=== PATIENT | female | born 1955 | race Caucasian/White ===

== ENCOUNTER → 2017-05-14 08:07 | Outpatient (CLI) | payer OTHER, SELFPAY ==
--- NOTE | 2017-05-14 08:20 | RAD_ITS ---
PROCEDURE: Fluoroscopic guided Hip Injection DATE: May 14, 2017. INDICATION: Female, 61 years old. Chronic right hip pain. PHYSICIAN: Eric Holt M.D. MEDICATIONS: 6 mg of betamethasone and 3 cc of 1% lidocaine. 2% Lidocaine administered subcutaneously for local anesthesia. ACCESS SITE: Right hip. NEEDLE: 22-gauge spinal needle. FLUOROSCOPY TIME (if supplied): (16 seconds) minutes/seconds FINDINGS: The risks, benefits, and alternatives to the procedure were explained to the patient. The specific risks of bleeding, infection, and neurovascular injury were detailed and accepted. Witnessed informed consent was obtained. A 22-gauge spinal needle was positioned under radiographic fluoroscopic localization. Approximately 2 cc of Isovue-300 instilled for localization purposes. Medication was then injected. The patient tolerated the procedure well without any immediate complications. The patient was placed supine with head elevated and returned to the floor in stable condition. RAD/Inj/Asp Vahe Jt Should/Hip/Knee IMPRESSION: 1. Successful fluoroscopic guided hip injection. Electronically Signed: Eric Holt MD at 9:49 EST Tel [phone], Service support ,
== END ==
PROVIDERS: Family Provider Family Medicine; PCP Family Medicine; Visit Provider Specialist
DX: M16.11 Unilateral primary osteoarthritis, right hip (principal)
CPT/HCPCS: 20610; 77002; Q9967; J0702

== ENCOUNTER → 2018-05-20 15:26 | Outpatient (CLI) | payer OTHER, SELFPAY ==
--- NOTE | 2018-05-20 15:47 | EKG12_ITS ---
Test Reason : PREOP Blood Pressure : / mmHG Vent. Rate : 084 BPM Atrial Rate : 084 BPM P-R Int : 162 ms QRS Dur : 076 ms QT Int : 354 ms P-R-T Axes : 054 033 048 degrees QTc Int : 418 ms Normal sinus rhythm Normal ECG Confirmed by SHIRA BLEDSOE MD ([id number]), script editor GISELLE ZENG ([id number] on 05/22/2018 1:51:36 PM Referred By: Etienne Connolly Confirmed By:SHIRA BLEDSOE MD
[2018-05-20 17:10] LABS: Absolute Lymphocyte Count 0.87 X10^3/ul (0.83-4.51); Absolute Neutrophil Count 4.6 X10^3/uL (2.0-7.7); Basophil# 0.02 X10^3/uL; Basophil% 0.3 % (0-1); Eosinophil# 0.09 X10^3/uL; Eosinophils% 1.5 % (0-5); Hematocrit 38.4 % (37-47); Hemoglobin 12.2 g/dl (12.0-15.0); Lymphocyte # 0.87 X10^3/ul (4.0); Lymphocyte % 14.2 % (19-41); Mean Corp Hgb Conc 31.8 g/gl (32-36); Mean Corpuscular Hgb 29.6 pg (27.0-32.0); Mean Corpuscular Volume 93.2 fL (81-99); Mean Platelet Vol. 11.3 fl (6.2-12.0); Monocyte# 0.54 X10^3/uL; Monocyte% 8.8 % (0-10); Neutrophil % 74.9 % (47-70); POSITIVE COUNT NO; POSITIVE DIFFERENTIAL NO; POSITIVE MORPHOLOGY NO; Platelet Count 299 K/mm3 (150-450); RBC Distribution Width CV 14.2 % (11.6-14.6); RBC Distribution Width SD 46.8 fl (35.1-43.9); Red Blood Count 4.12 M/mm3 (4.2-5.4); White Blood Count 6.1 K/mm3 (4.4-11.0)
[2018-05-20 17:27] LABS: Hemoglobin A1c 6.2 % (4.2-6.3)
[2018-05-20 17:35] LABS: Anion Gap 12 (5-15); BUN 18 mg/dL (7-18); Calcium,Total 9.4 mg/dL (8.5-10.1); Chloride 106 mmol/L (98-107); Creatinine, Serum 1.06 mg/dL (0.55-1.02); EST Glomerular Filtration Rate 56 mL/min (>60); Est Glom Filt Rate - Afr Amer 68 mL/min (>60); Glucose 81 mg/dL (74-106); Potassium 4.2 mmol/L (3.5-5.1); Sodium Level 142 mmol/L (136-145)
== END ==
PROVIDERS: Family Provider Family Medicine; PCP Family Medicine; Referring Provider Physician Assistant Surgical; Visit Provider Physician Assistant Surgical
DX: Z01.810 Encounter for preprocedural cardiovascular examination (principal); Z01.818 Encounter for other preprocedural examination; E11.9 Type 2 diabetes mellitus without complications
CPT/HCPCS: 36415; 80048; 83036; 85025; 93005

== ENCOUNTER → 2018-05-31 06:38 | Outpatient (CLI) | payer OTHER, SELFPAY ==
--- NOTE | 2018-05-31 06:39 | ECHOD_ITS ---
Reason For Study: Pre-op surgery clearance Procedure This was a 2D Doppler, Color Flow transthoracic echocardiogram. Exam performed in department. Left Ventricle Normal LV size. The estimated ejection fraction is 53 %. Left ventricular systolic function is lower limits of normal. The global longitudinal strain = -16.2 borderline% (abnormal). Right Ventricle Normal RV size. Normal systolic function. Atria The left atrium is moderately enlarged. Normal right atrium. Hypermobile atrial septum. Patent foramen ovale. Saline contrast study demonstrates moderate right to left interatrial shunt. Mitral Valve Mild diffuse mitral valve thickening. Mild (1+) eccentric mitral valve insufficiency. Tricuspid Valve Normal tricuspid valve. Mild (1+) tricuspid valve insufficiency. Pulmonary artery systolic pressure is 29 mmHg. Aortic Valve Trisinus/trileaflet aortic valve. Pulmonic Valve Normal pulmonic valve. Great Vessels Normal aortic root. The pulmonary artery is normal size. Normal inferior vena cava. Pericardium/Pleural No pericardial effusion. Medication Performed a rapid injection of agitated mix of 9 cc saline and 1cc air to assess for atrial septal defect. MMode/2D Measurements & Calculations LVIDd: 4.6 cm IVSd: 0.89 cm Ao root diam: 3.2 cm LVIDs: 3.0 cm LVPWd: 0.99 cm RVDd: 3.1 cm FS: 33.9 % LAV(MOD-bp): 77.8 ml EDV(MOD-sp4): 104.5 ml EDV(MOD-sp2): 88.5 ml LAV(MOD-bp) Indexed: 43.0 ml/m2 ESV(MOD-sp4): 51.8 ml EF(MOD-sp2): 48.4 % LAV(MOD-sp2): 64.0 ml EF(MOD-sp4): 50.4 % LAV(MOD-sp4): 85.6 ml SV(MOD-sp4): 52.7 ml SV(MOD-sp2): 42.8 ml LA A4 area: 25.1 cm2 LA dimension(2D): 3.4 cm RA A4 area: 14.0 cm2 Doppler Measurements & Calculations MV E max justin: 63.9 cm/sec Lat Peak E' Justin: 7.8 cm/sec Med Peak E' Justin: 8.3 cm/sec MV A max justin: 83.3 cm/sec E/E' lat: 8.2 E/E' med: 7.7 MV E/A: 0.77 Ao V2 max: 144.8 cm/sec LV V1 max: 106.0 cm/sec PA V2 max: 100.0 cm/sec Ao max P.4 mmHg LV V1 max P.5 mmHg TR max justin: 249.3 cm/sec TR max P.9 mmHg Interpretation Summary Hypermobile atrial septum. Normal LV size. The estimated ejection fraction is 53 %. Left ventricular systolic function is lower limits of normal. The global longitudinal strain = -16.2 borderline% (abnormal). The left atrium is moderately enlarged. Patent foramen ovale. Mild (1+) eccentric mitral valve insufficiency. Pulmonary artery systolic pressure is 29 mmHg. Ordering Physician: Josh Abel Referring Physician: David Nation MD Performed By: Trinity Calvin RDCS
--- NOTE | 2018-05-31 09:21 | STRESSREP_ITS ---
Stress Test Report Pharmacologic myocardial perfusion stress test. 62-year-old lady with a history of chest pain preoperative evaluation. Medications: Lisinopril, metoprolol, meloxicam, pravastatin. Stress protocol: Resting EKG demonstrates sinus bradycardia with a rate of 53 bpm normal intervals are noted resting blood pressure 128/70 minute test of mercury. 0.4 mg of regadenoson was infused per usual protocol followed by rapid intravenous saline flush injection. The maximum heart rate attained was 106 bpm which was 67% maximum predicted heart rate the maximum workload was 1 metabolic equivalent. At rest there were no ST or T wave changes noted suggest abnormal flow reserve at peak infusion no ST or T wave changes were noted suggest ischemia. No clinical angina was noted. The resting blood pressure 128/70 with a peak blood pressure 154/80 mmHg. Myocardial perfusion protocol. 10.0 mCi of technetium 99m sestamibi was injected at rest. 0.4 mg of regadenoson was infused per usual protocol. At peak infusion 30.0 mCi of technetium 99m sestamibi was injected stress images were obtained stress and rest images were reconstructed and compared in the short axis vertical and horizontal long axis. Gated images were also obtained per Perfusion SPECT analysis: Review of the stress images demonstrate normal uptake of tracer noted in all a reas of the myocardium. There are no areas of reversibility to suggest ischemia no previous infarct is noted. Gated SPECT analysis: The gated ejection fraction is noted to be 62%. Conclusion: Normal pharmacologic myocardial perfusion stress test. Preserved ejection fraction.
== END ==
PROVIDERS: Family Provider Family Medicine; PCP Family Medicine; Referring Provider Internal Medicine Cardiovascular Disease; Visit Provider Internal Medicine Cardiovascular Disease
DX: Z01.810 Encounter for preprocedural cardiovascular examination (principal); I10 Essential (primary) hypertension
CPT/HCPCS: 78452; 93017; 93306; A9500; A4216; J2785

== ENCOUNTER → 2018-08-28 | Outpatient (CLI) | payer OTHER, SELFPAY ==
[2018-07-08 14:06] VITALS: BMI 23.6
[2018-08-28 09:46] LABS: Absolute Lymphocyte Count 0.92 X10^3/ul (0.83-4.51); Absolute Neutrophil Count 4.3 X10^3/uL (2.0-7.7); Basophil# 0.04 X10^3/uL; Basophil% 0.7 % (0-1); Eosinophil# 0.16 X10^3/uL; Eosinophils% 2.6 % (0-5); Hematocrit 39.4 % (37-47); Hemoglobin 12.4 g/dl (12.0-15.0); Lymphocyte # 0.92 X10^3/ul (4.0); Lymphocyte % 15.2 % (19-41); Mean Corp Hgb Conc 31.5 g/gl (32-36); Mean Corpuscular Hgb 28.1 pg (27.0-32.0); Mean Corpuscular Volume 89.1 fL (81-99); Mean Platelet Vol. 10.7 fl (6.2-12.0); Monocyte# 0.59 X10^3/uL; Monocyte% 9.8 % (0-10); Neutrophil # 4.31 X10^3/uL (2.7-7.7); Neutrophil % 71.4 % (47-70); Platelet Count 330 K/mm3 (150-450); RBC Distribution Width CV 15.9 % (11.6-14.6); RBC Distribution Width SD 51.8 fl (35.1-43.9); Red Blood Count 4.42 M/mm3 (4.2-5.4)
[2018-08-28 09:47] LABS: POSITIVE COUNT NO; POSITIVE DIFFERENTIAL NO; POSITIVE MORPHOLOGY NO
[2018-08-28 09:52] LABS: Erythrocyte Sedimentation Rate 41 mm/hr (0-30)
[2018-08-28 10:07] LABS: CRP < 2.90 mg/L (0.0-3.0)
== END | disposition home or self-care (01) ==
PROVIDERS: Family Provider Family Medicine; PCP Family Medicine; Referring Provider Physician Assistant Surgical; Visit Provider Physician Assistant Surgical
DX: Z96.641 Presence of right artificial hip joint (principal); Z47.1 Aftercare following joint replacement surgery
CPT/HCPCS: 36415; 85025; 85652; 86140

== ENCOUNTER 2018-09-13 08:00 | Outpatient (RCR) | payer OTHER, SELFPAY ==
[2018-07-08 14:06] VITALS: BMI 23.6
[2018-09-06 09:01] VITALS: BP 149/79; PULSE 56; RESP 16; TEMP 37; BMI 22.8
--- NOTE | 2018-09-06 12:08 | PCM.WC.HP ---
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 History of Wound: 62-year-old white female that had a right hip replacement done in June 07. Fell up to a flap nonhealing surgical wound. Patient scab then opened and now has a large open surgical wound with fat exposed since May. She has been doing wet-to-dry dressing since then documentation to follow from the surgery center. 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) Patent foramen ovale (Chronic) Hyperlipidemia (Chronic) Nicotine dependence (Chronic) Type 2 diabetes mellitus (Chronic) Essential (primary) hypertension (Chronic) Allergies/Adverse Reactions: Allergies No Known Allergies Allergy (Verified 07/08/18 14:10) Home Medications: Ambulatory Orders Medication Instructions Recorded lisinopril 20 mg tablet 20 mg PO BID 90 Days #180 tab 05/29/18 meloxicam 15 mg tablet 15 mg PO DAILY 90 Days #90 tab 05/29/18 metformin 500 mg tablet 500 mg PO DAILY 90 Days #90 tab 05/29/18 pravastatin 20 mg tablet 20 mg PO QHS 90 Days #90 tab 05/29/18 sertraline 100 mg tablet 100 mg PO Q24H 90 Days #90 tab 05/29/18 triamterene 37.5 1 tab PO QAM 90 Days #90 tab 05/29/18 mg-hydrochlorothiazide 25 mg tablet aspirin 81 mg tablet,delayed 81 mg PO DAILY 07/09/18 release metoprolol succinate ER 25 mg 25 mg PO DAILY #90 tab 07/09/18 tablet,extended release 24 hr Lives: Spouse/ Significant Other Smoking Status: Current every day smoker Tobacco Use: Cigarettes Alcohol: None Drugs: None Review of Systems Constitutional: Denies: Chills, Fever Eyes: Denies: Blurred vision, Drainage, Pain HEENT: Denies: Difficulty Hearing, Difficulty Swallowing, Sore Throat, Visual Changes Cardiovascular: Denies: Chest Pain, Palpitations, Syncope Respiratory: Denies: Cough, Shortness of Breath Gastrointestinal: Denies: Abdominal Pain, Nausea, Vomiting Genitourinary: Denies: Dysuria, Frequency Musculoskeletal: Denies: Joint Pain, Muscle pain Skin: Reports: - - Open surgical wound right hip upper thigh area. Denies: Jaundice, Rash Neurological: Denies: Balance problems, Change in Speech, Difficulty swallowing, Focal weakness Psychiatric: Denies: Anxiety, Depression Endocrine: Denies: Change in Body Habitus Hematologic/ Lymphatic: Denies: Adenopathy - Physical Exam Vital Signs Temp Pulse Resp BP 98.6 F 56 L 16 149/79 H 09/06/18 09:01 09/06/18 09:01 09/06/18 09:01 09/06/18 09:01 General: Oriented x3, Cooperative, Well developed HEENT: Atraumatic, PERRLA Oral: Moist Mucosa Neck: Supple, No JVD Lungs: Clear to auscultation, Normal air movement Cardiovascular: Regular rate, Regular Rhythm Abdomen: Bowel Sounds Present, Soft, Non Tender, No Hepato-splenomegaly Extremities: No clubbing, No edema Skin: - - Open surgical wound right upper thigh Wound Measurements and Assessment WC - Nurse 1 - General Ulcer Measurement Start: 09/06/18 09:00 Freq: Status: Active Protocol: Activity Type Activity Date Activity User E-Sign Co-Sign Detail Recorded Client Recorded Date Recorded By Document 09/06/18 09:01 [id number] 09/06/18 09:05 Document 09/06/18 09:16 [id number] 09/06/18 09:17 09/06/18 09/06/18 09:01 09:16 Wound Center Nurse 1 [Ulcer Assessment] #1 right hip -Combined with other wound No -Current Size (cm) - Length 3.6 -Current Size (cm) - Width 4.9 -Current Size (cm) - Depth 0.5 -Total Square Cm 17.64 -Date of Last Picture (Recall this 09/06/18 field) -Photo Taken Yes -Epithelialization None Present -Tunneling No -Undermining/Tunneling Yes -Undermining/Tunneling Starts (O' 4 clock) -Undermining/Tunneling Ends (O'clock) 6 -Maximum Distance (cm) 0.5 -Circular Undermining No -Exudate Amt Small -Exudate Type Serosanguineous -Wound Margin Thickened & Rolled Under -Granulation Amt Medium (34-66%) -Granulation Quality Red -Slough/Fibrin Yes -Necrosis Amt Small (1-33%) -Necrotic Tissue Type Adherent Slough -Structure Exposed None/Limited to Skin Breakdown -Texture (Zoila-wound Skin Appearance) Assessed -Moisture (Zoila-wound Skin Appearance Assessed ) -Color (Zoila-wound Skin Appearance) Assessed -Temperature (Zoila-wound Skin No Abnormality Appearance) (Pt Warm) -Tenderness on Palpation (Zoila-wound No Skin Appearance) -Ulcer Cleansing Rinsed/ Irrigated with Saline -Foul Odor after Cleansing No -Anesthetic Used 5% Lidocaine Gel #1 Right hip: post-op -Combined with other wound No -Current Size (cm) - Length 3.6 -Current Size (cm) - Width 4.9 -Current Size (cm) - Depth 0.5 -Total Square Cm 17.64 -Date of Last Picture (Recall this 09/06/18 field) -Photo Taken Yes -Epithelialization None Present -Tunneling No -Undermining/Tunneling Yes -Undermining/Tunneling Starts (O' 4 clock) -Undermining/Tunneling Ends (O'clock) 6 -Maximum Distance (cm) 0.5 -Circular Undermining No -Exudate Amt Small -Exudate Type Serosanguineous -Wound Margin Thickened & Rolled Under -Granulation Amt Medium (34-66%) -Granulation Quality Red -Slough/Fibrin Yes -Necrosis Amt Small (1-33%) -Necrotic Tissue Type Adherent Slough -Structure Exposed None/Limited to Skin Breakdown -Texture (Zoila-wound Skin Appearance) Assessed -Moisture (Zoila-wound Skin Appearance Assessed ) -Color (Zoila-wound Skin Appearance) No Abnormality Assessed -Temperature (Zoila-wound Skin No Abnormality Appearance) (Pt Warm) -Tenderness on Palpation (Zoila-wound No Skin Appearance) -Ulcer Cleansing Rinsed/ Irrigated with Saline -Foul Odor after Cleansing No -Anesthetic Used 5% Lidocaine Gel [Edema Assessment] -Lower Limb Edema Present NA - Nurse 2 - General Ulcer CM Notes Start: 09/06/18 09:00 Freq: Status: Active Protocol: Activity Type Activity Date Activity User E-Sign Co-Sign Detail Recorded Client Recorded Date Recorded By Document 09/06/18 09:05 MW [id number] 09/06/18 09:10 MW 09/06/18 09:05 Wound Center Nurse 2 [Procedure/Treatment] -Time 09:09 -Correct Patient Yes -Correct Side, Site, Position Yes -Correct Procedure Yes -Procedure Performed Yes -Type of Procedure Debridement -Clinical Debridement Subcutaneous -Post Debridement Size (cm) - Length 3.2 -Post Debridement Size (cm) - Width 4.2 -Post Debridement Size (cm) - Depth 0.7 -Total Square Cm 13.44 -Wound/Ulcer Outcome Not Healed -Ulcer Cleansing Rinsed/ Irrigated with Saline -Foul Odor after Cleansing No -Bioengineered Tissue No -Bleeding Controlled with Pressure -Offloading No -Treatment Response Procedure Tolerated Well [See Physician Procedure note for Specifics] Pain Scale: 0-10 Numeric [Pain] -Is Patient Pain Free? Yes Musculoskeletal: No Tenderness to Palpation of Joints or Extremities Lymphatic: No Cervical, Supraclavicular, or Inguinal Adenopathy Neurological: Cranial nerves II-XII grossly intact, Neuro grossly intact Psych/Mental Status: Normal Affect, Appropriate, Alert and oriented to time, place, person, mood and affect Debridement Note Post-Debridement Measurements/Treatment - Nurse 2 - General Ulcer CM Notes Start: 09/06/18 09:00 Freq: Status: Active Protocol: Activity Type Activity Date Activity User E-Sign Co-Sign Detail Recorded Client Recorded Date Recorded By Document 09/06/18 09:05 MW [id number] 09/06/18 09:10 MW 05/24/19 09:05 Wound Center Nurse 2 #1 right hip -Time 09:09 -Correct Patient Yes -Correct Side, Site, Position Yes -Correct Procedure Yes -Procedure Performed Yes -Type of Procedure Debridement -Clinical Debridement Subcutaneous -Post Debridement Size (cm) - Length 3.2 -Post Debridement Size (cm) - Width 4.2 -Post Debridement Size (cm) - Depth 0.7 -Total Square Cm 13.44 -Wound/Ulcer Outcome Not Healed -Ulcer Cleansing Rinsed/ Irrigated with Saline -Foul Odor after Cleansing No -Bioengineered Tissue No -Bleeding Controlled with Pressure -Offloading No -Treatment Response Procedure Tolerated Well Pain Scale: 0-10 Numeric Is Patient Pain Free? Yes Wound debrided: Upper thigh surgical wound chronic Type of Debridement: Excisional debridement Anesthesia Used: 5% Lidocaine Gel Depth: Down to and including healthy tissue, in the subcutaneous layer Percentage of wound debrided: 100 Instrument Used: 7mm curette Tissue Removed: Slough and some fibrin Severity: Limited To Skin Breakdown Amount of bleeding with debridement: Mild Bleeding Controlled with: Compression and gauze Patient tolerated procedure well Assessment/Plan Active Problems (Last Updated 07/08/18 @ 14:12 by Rachel Herrera) Non-healing non-surgical wound (Acute) Open wound of lower extremity (Chronic) Nonhealing nonsurgical wound with fat layer exposed (Acute) Non-healing surgical wound (Chronic) 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 Chronic open surgical wound from right hip replacement Plan: Wash the area with Dial soap. Apply Promogran to the wound bed. Cover with Adaptic and gauze and tape. Follow-up in 1 week.
[2018-09-13 08:09] VITALS: BP 125/79; PULSE 73; RESP 16; TEMP 36.8; BMI 22.8
--- NOTE | 2018-09-13 08:26 | PCM.WC.PN ---
(1) Essential (primary) hypertension Status: Chronic Current Visit: Yes Code(s): I10 - Essential (primary) hypertension (2) Type 2 diabetes mellitus Status: Chronic Current Visit: Yes Code(s): E11.9 - Type 2 diabetes mellitus without complications (3) Open wound of lower extremity Status: Chronic Current Visit: Yes Code(s): S81.809A - Unspecified open wound, unspecified lower leg, initial encounter (4) Non-healing surgical wound Status: Chronic Current Visit: Yes Code(s): T81.89XA - Other complications of procedures, not elsewhere classified, initial encounter (5) Non-pressure ulcer of right lower extremity with fat layer exposed Status: Chronic Current Visit: Yes Code(s): L97.912 - Non-pressure chronic ulcer of unspecified part of right lower leg with fat layer exposed Type of Wound Chief Complaint: Follow-up on right surgical open wound. History of Wound: 62-year-old white female that had a right hip replacement done in June 07. Fell up to a flap nonhealing surgical wound. Patient scab then opened and now has a large open surgical wound with fat exposed since May. She has been doing wet-to-dry dressing since then documentation to follow from the surgery center. Since patient has been doing a wet-to-dry since May we have applied for an epi-fix to the wound base to help fill-in depth Progress of Wound: After only 1 week the wound is already filling in on Promogran. Denied on epi fix we will try to apply for puraply or Apligraf. Patient doing well did grow some bacteria regular staph in the wound patient is now on antibiotics for this. No redness cellulitis or infection noted wound base very clean undermining still apparent between 2 and 5. Patient tolerating treatment well - Physical Exam Vital Signs Temp Pulse Resp BP 98.2 F 73 16 125/79 H 09/13/18 08:09 09/13/18 08:09 09/13/18 08:09 09/13/18 08:09 General: Oriented x3, Cooperative, Well developed HEENT: Atraumatic, PERRLA Oral: Moist Mucosa Neck: Supple, No JVD Lungs: Clear to auscultation, Normal air movement Cardiovascular: Regular rate, Regular Rhythm Abdomen: Bowel Sounds Present, Soft, Non Tender, No Hepato-splenomegaly Extremities: No clubbing, No edema Skin: Incision - Dehisced incision right hip area healing well Wound Measurements and Assessment WC - Nurse 1 - General Ulcer Measurement Start: 09/06/18 09:00 Freq: Status: Active Protocol: Activity Type Activity Date Activity User E-Sign Co-Sign Detail Recorded Client Recorded Date Recorded By Document 09/13/18 08:09 DL [id number] 09/13/18 08:14 DL 09/13/18 08:09 Wound Center Nurse 1 [Ulcer Assessment] #1 right hip -Current Size (cm) - Length 3 -Current Size (cm) - Width 4 -Current Size (cm) - Depth 0.4 -Total Square Cm 12 -Photo Taken No -Undermining/Tunneling Starts (O' 3 clock) -Undermining/Tunneling Ends (O'clock) 4 -Maximum Distance (cm) 0.5 -Exudate Amt Small -Exudate Type Serosanguineous -Wound Margin Thickened -Granulation Amt Medium (34-66%) -Granulation Quality Red -Necrosis Amt Medium (34-66%) -Necrotic Tissue Type Adherent Slough -Structure Exposed N/A -Texture (Zoila-wound Skin Appearance) Scarring -Moisture (Zoila-wound Skin Appearance No Abnormality ) -Color (Zoila-wound Skin Appearance) No Abnormality -Temperature (Zoila-wound Skin No Abnormality Appearance) (Pt Warm) -Tenderness on Palpation (Zoila-wound No Skin Appearance) -Ulcer Cleansing Rinsed/ Irrigated with Saline -Foul Odor after Cleansing No -Anesthetic Used 4% Lidocaine Solution WC - Nurse 2 - General Ulcer CM Notes Start: 09/06/18 09:00 Freq: Status: Active Protocol: Activity Type Activity Date Activity User E-Sign Co-Sign Detail Recorded Client Recorded Date Recorded By Document 09/13/18 08:19 MW [id number] 09/13/18 08:22 MW 09/13/18 08:19 Wound Center Nurse 2 [Procedure/Treatment] -Time 08:21 -Correct Patient Yes -Correct Side, Site, Position Yes -Correct Procedure Yes -Procedure Performed Yes -Type of Procedure Debridement -Clinical Debridement Subcutaneous -Post Debridement Size (cm) - Length 3.5 -Post Debridement Size (cm) - Width 4.0 -Post Debridement Size (cm) - Depth 0.5 -Total Square Cm 14.00 -Wound/Ulcer Outcome Not Healed -Ulcer Cleansing Rinsed/ Irrigated with Saline -Foul Odor after Cleansing No -Bioengineered Tissue No -Bleeding Controlled with Pressure -Offloading No -Treatment Response Procedure Tolerated Well [See Physician Procedure note for Specifics] Pain Scale: 0-10 Numeric [Pain] -Is Patient Pain Free? Yes Musculoskeletal: No Tenderness to Palpation of Joints or Extremities Lymphatic: No Cervical, Supraclavicular, or Inguinal Adenopathy Neurological: Cranial nerves II-XII grossly intact, Neuro grossly intact Psych/Mental Status: Normal Affect, Appropriate Debridement Note Post-Debridement Measurements/Treatment WC - Nurse 2 - General Ulcer CM Notes Start: 09/06/18 09:00 Freq: Status: Active Protocol: Activity Type Activity Date Activity User E-Sign Co-Sign Detail Recorded Client Recorded Date Recorded By Document 09/06/18 09:05 MW [id number] 09/06/18 09:10 MW Document 09/13/18 08:19 MW [id number] 09/13/18 08:22 MW 09/06/18 09/13/18 09:05 08:19 Wound Center Nurse 2 #1 right hip -Time 09:09 08:21 -Correct Patient Yes Yes -Correct Side, Site, Position Yes Yes -Correct Procedure Yes Yes -Procedure Performed Yes Yes -Type of Procedure Debridement Debridement -Clinical Debridement Subcutaneous Subcutaneous -Post Debridement Size (cm) - Length 3.2 3.5 -Post Debridement Size (cm) - Width 4.2 4.0 -Post Debridement Size (cm) - Depth 0.7 0.5 -Total Square Cm 13.44 14.00 -Wound/Ulcer Outcome Not Healed Not Healed -Ulcer Cleansing Rinsed/ Rinsed/ Irrigated with Irrigated with Saline Saline -Foul Odor after Cleansing No No -Bioengineered Tissue No No -Bleeding Controlled with Pressure Pressure -Offloading No No -Treatment Response Procedure Procedure Tolerated Well Tolerated Well Pain Scale: 0-10 Numeric Is Patient Pain Free? Yes Yes Wound debrided: Surgical wound dehisced Type of Debridement: Excisional debridement Anesthesia Used: 5% Lidocaine Gel Depth: Down to and including healthy tissue, in the subcutaneous layer Percentage of wound debrided: 100 Instrument Used: 5mm curette Tissue Removed: Fibrin Severity: Limited To Skin Breakdown Amount of bleeding with debridement: Mild Bleeding Controlled with: Compression and gauze Patient tolerated procedure well Assessment/Plan Active Problems (Last Updated 07/08/18 @ 14:12 by Rachel Herrera) Non-healing non-surgical wound (Acute) Open wound of lower extremity (Chronic) Nonhealing nonsurgical wound with fat layer exposed (Acute) Non-healing surgical wound (Chronic) 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 Chronic open surgical wound from right hip replacement Plan: Wash the area with Dial soap. Apply Promogran to the wound bed. Cover with Adaptic and gauze and tape. Follow-up in 1 week.
== END 2018-09-13 23:59 ==
LOC: WC 08:00
PROVIDERS: Family Provider Family Medicine; PCP Family Medicine; Visit Provider Nurse Practitioner
DX: T81.31XA Disruption of external operation (surgical) wound, not elsewhere classified, initial encounter (principal); Y83.8 Other surgical procedures as the cause of abnormal reaction of the patient, or of later complication, without mention of misadventure at the time of the procedure; E11.9 Type 2 diabetes mellitus without complications; I10 Essential (primary) hypertension; Z96.641 Presence of right artificial hip joint; E78.5 Hyperlipidemia, unspecified; Z79.899 Other long term (current) drug therapy; Z79.84 Long term (current) use of oral hypoglycemic drugs; Z79.82 Long term (current) use of aspirin; F17.210 Nicotine dependence, cigarettes, uncomplicated
CPT/HCPCS: 11042; 87070; 87075; 87077; 87186; 87205; 99213; G0463

== ENCOUNTER 2018-10-11 08:00 | Outpatient (RCR) | payer OTHER, SELFPAY ==
[2018-09-14 01:24] VITALS: BP 125/79; PULSE 73; RESP 16; TEMP 36.8
[2018-09-20 08:26] VITALS: BP 136/74; PULSE 70; RESP 18; TEMP 37.1; BMI 22.8
--- NOTE | 2018-09-20 08:42 | PN.PCM_ITS ---
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 History of Wound: 62-year-old white female that had a right hip replacement done in June 07. Fell up to a flap nonhealing surgical wound. Patient scab then opened and now has a large open surgical wound with fat exposed since May. She has been doing wet-to-dry dressing since then documentation to follow from the surgery center. Since patient has been doing a wet-to-dry since May we have applied for an epi-fix to the wound base to help fill-in depth Progress of Wound: The wound is smaller from last week depth is better. Denied on epi fix we will try to apply for puraply or Apligraf. Patient doing well did grow some bacteria regular staph in the wound patient is now on antibiotics for this. No redness cellulitis or infection noted wound base very clean undermining still apparent between 2 and 5. Patient tolerating treatment well - Physical Exam Vital Signs Temp Pulse Resp BP 98.7 F 70 18 136/74 H 09/20/18 08:26 09/20/18 08:26 09/20/18 08:26 09/20/18 08:26 General: Oriented x3, Cooperative, Well developed HEENT: Atraumatic, PERRLA Oral: Moist Mucosa Neck: Supple, No JVD Lungs: Clear to auscultation, Normal air movement Cardiovascular: Regular rate, Regular Rhythm Abdomen: Bowel Sounds Present, Soft, Non Tender, No Hepato-splenomegaly Extremities: No clubbing, No edema, - - Right upper thigh open wound postoperative Skin: Ulcer/ Wound Wound Measurements and Assessment WC - Nurse 1 - General Ulcer Measurement Start: 09/20/18 08:26 Freq: Status: Active Protocol: Activity Type Activity Date Activity User E-Sign Co-Sign Detail Recorded Client Recorded Date Recorded By Document 09/20/18 08:26 RB [id number] 09/20/18 08:28 RB 09/20/18 08:26 Wound Center Nurse 1 [Ulcer Assessment] #1 right hip -Combined with other wound No -Current Size (cm) - Length 2.4 -Current Size (cm) - Width 3 -Current Size (cm) - Depth 0.1 -Total Square Cm 7.2 -Tunneling No -Undermining/Tunneling No -Circular Undermining No -Exudate Amt Small -Exudate Type Serosanguineous -Wound Margin Thickened & Rolled Under -Granulation Amt Medium (34-66%) -Granulation Quality [place] -Slough/Fibrin Yes -Necrosis Amt Small (1-33%) -Necrotic Tissue Type Adherent Slough -Structure Exposed N/A -Texture (Zoila-wound Skin Appearance) Assessed -Moisture (Zoila-wound Skin Appearance Assessed ) -Color (Zoila-wound Skin Appearance) Assessed -Temperature (Zoila-wound Skin No Abnormality Appearance) (Pt Warm) -Tenderness on Palpation (Zoila-wound No Skin Appearance) -Ulcer Cleansing Rinsed/ Irrigated with Saline -Foul Odor after Cleansing No -Anesthetic Used 5% Lidocaine Gel WC - Nurse 2 - General Ulcer CM Notes Start: 09/20/18 08:26 Freq: Status: Active Protocol: Activity Type Activity Date Activity User E-Sign Co-Sign Detail Recorded Client Recorded Date Recorded By Document 09/20/18 08:34 MW [id number] 09/20/18 08:38 MW 09/20/18 08:34 Wound Center Nurse 2 [Procedure/Treatment] -Time 08:35 -Correct Patient Yes -Correct Side, Site, Position Yes -Correct Procedure Yes -Procedure Performed Yes -Type of Procedure Debridement -Clinical Debridement Subcutaneous -Post Debridement Size (cm) - Length 3.0 -Post Debridement Size (cm) - Width 3.0 -Post Debridement Size (cm) - Depth 0.3 -Total Square Cm 9.00 -Wound/Ulcer Outcome Not Healed -Ulcer Cleansing Rinsed/ Irrigated with Saline -Foul Odor after Cleansing No -Bioengineered Tissue No -Bleeding Controlled with Pressure -Offloading No -Treatment Response Procedure Tolerated Well [See Physician Procedure note for Specifics] Pain Scale: 0-10 Numeric [Pain] -Is Patient Pain Free? Yes Musculoskeletal: No Tenderness to Palpation of Joints or Extremities Lymphatic: No Cervical, Supraclavicular, or Inguinal Adenopathy Neurological: Cranial nerves II-XII grossly intact, Neuro grossly intact Psych/Mental Status: Normal Affect, Appropriate Debridement Note Post-Debridement Measurements/Treatment WC - Nurse 2 - General Ulcer CM Notes Start: 09/20/18 08:26 Freq: Status: Active Protocol: Activity Type Activity Date Activity User E-Sign Co-Sign Detail Recorded Client Recorded Date Recorded By Document 09/20/18 08:34 MW [id number] 09/20/18 08:38 MW 09/20/18 08:34 Wound Center Nurse 2 #1 right hip -Time 08:35 -Correct Patient Yes -Correct Side, Site, Position Yes -Correct Procedure Yes -Procedure Performed Yes -Type of Procedure Debridement -Clinical Debridement Subcutaneous -Post Debridement Size (cm) - Length 3.0 -Post Debridement Size (cm) - Width 3.0 -Post Debridement Size (cm) - Depth 0.3 -Total Square Cm 9.00 -Wound/Ulcer Outcome Not Healed -Ulcer Cleansing Rinsed/ Irrigated with Saline -Foul Odor after Cleansing No -Bioengineered Tissue No -Bleeding Controlled with Pressure -Offloading No -Treatment Response Procedure Tolerated Well Pain Scale: 0-10 Numeric Is Patient Pain Free? Yes Wound debrided: Right upper leg dehisced wound Type of Debridement: Excisional debridement Anesthesia Used: 5% Lidocaine Gel Depth: Down to and including healthy tissue, in the subcutaneous layer Percentage of wound debrided: 100 Instrument Used: 5mm curette Tissue Removed: Fibrin and devitalized tissue Severity: Limited To Skin Breakdown Amount of bleeding with debridement: Mild Bleeding Controlled with: Compression and gauze Patient tolerated procedure well Assessment/Plan Active Problems (Last Updated 07/08/18 @ 14:12 by Rachel Herrera) Open wound of lower extremity (Chronic) Non-healing surgical wound (Chronic) 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 Chronic open surgical wound from right hip replacement Plan: Wash the area with Dial soap. Apply Promogran to the wound bed. Cover with Adaptic and gauze and tape. Follow-up in 1 week.
[2018-09-27 08:23] VITALS: BP 140/95; PULSE 79; RESP 18; TEMP 36.6; BMI 22.8
--- NOTE | 2018-09-27 09:08 | PCM.WC.PN ---
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 History of Wound: 62-year-old white female that had a right hip replacement done in June 07. Fell up to a flap nonhealing surgical wound. Patient scab then opened and now has a large open surgical wound with fat exposed since May. She has been doing wet-to-dry dressing since then documentation to follow from the surgery center. Since patient has been doing a wet-to-dry since May we have applied for an epi-fix to the wound base to help fill-in depth Progress of Wound: The wound is smaller from last week depth is better. Denied on epi fix we will try to apply for puraply or Apligraf. Patient doing well did grew some bacteria regular staph in the wound patient finished her antibiotics for this. No redness cellulitis or infection noted wound base very clean . Patient will follow-up in 2 weeks no sign of infection patient feels good - Physical Exam Vital Signs Temp Pulse Resp BP 98 F 79 18 140/95 H 09/27/18 08:23 09/27/18 08:23 09/27/18 08:23 09/27/18 08:23 General: Oriented x3, Cooperative, Well developed HEENT: Atraumatic, PERRLA Oral: Moist Mucosa Neck: Supple, No JVD Lungs: Clear to auscultation, Normal air movement Cardiovascular: Regular rate, Regular Rhythm Abdomen: Bowel Sounds Present, Soft, Non Tender, No Hepato-splenomegaly Extremities: No clubbing, No edema Skin: Ulcer/ Wound - Right hip surgical wound dehisced Wound Measurements and Assessment WC - Nurse 1 - General Ulcer Measurement Start: 09/20/18 08:26 Freq: Status: Active Protocol: Activity Type Activity Date Activity User E-Sign Co-Sign Detail Recorded Client Recorded Date Recorded By Document 09/27/18 08:23 RB [id number] 09/27/18 08:25 RB 09/27/18 08:23 Wound Center Nurse 1 [Ulcer Assessment] #1 right hip -Combined with other wound No -Current Size (cm) - Length 2.2 -Current Size (cm) - Width 2.5 -Current Size (cm) - Depth 0.1 -Total Square Cm 5.50 -Epithelialization Small 1-33% -Tunneling No -Undermining/Tunneling No -Circular Undermining No -Exudate Amt Small -Exudate Type Serosanguineous -Wound Margin Distinct, Outline Attached -Granulation Amt Large (67-100%) -Granulation Quality [employer] -Slough/Fibrin Yes -Necrosis Amt Small (1-33%) -Necrotic Tissue Type Adherent Slough -Structure Exposed N/A -Texture (Zoila-wound Skin Appearance) Assessed -Moisture (Zoila-wound Skin Appearance Assessed ) -Color (Zoila-wound Skin Appearance) Assessed -Temperature (Zoila-wound Skin No Abnormality Appearance) (Pt Warm) -Tenderness on Palpation (Zoila-wound No Skin Appearance) -Ulcer Cleansing Rinsed/ Irrigated with Saline -Foul Odor after Cleansing No -Anesthetic Used 4% Lidocaine Solution WC - Nurse 2 - General Ulcer CM Notes Start: 09/20/18 08:26 Freq: Status: Active Protocol: Activity Type Activity Date Activity User E-Sign Co-Sign Detail Recorded Client Recorded Date Recorded By Document 09/27/18 08:45 MW [id number] 09/27/18 08:45 MW 09/27/18 08:45 Wound Center Nurse 2 [Procedure/Treatment] -Time 08:45 -Correct Patient Yes -Correct Side, Site, Position Yes -Correct Procedure Yes -Procedure Performed Yes -Type of Procedure Debridement -Clinical Debridement Subcutaneous -Post Debridement Size (cm) - Length 2.6 -Post Debridement Size (cm) - Width 2.6 -Post Debridement Size (cm) - Depth 0.2 -Total Square Cm 6.76 -Wound/Ulcer Outcome Not Healed -Ulcer Cleansing Rinsed/ Irrigated with Saline -Foul Odor after Cleansing No -Bioengineered Tissue No -Bleeding Controlled with Pressure -Offloading No -Treatment Response Procedure Tolerated Well [See Physician Procedure note for Specifics] Pain Scale: 0-10 Numeric [Pain] -Is Patient Pain Free? Yes Musculoskeletal: No Tenderness to Palpation of Joints or Extremities Lymphatic: No Cervical, Supraclavicular, or Inguinal Adenopathy Neurological: Cranial nerves II-XII grossly intact, Neuro grossly intact Psych/Mental Status: Normal Affect, Appropriate Debridement Note Post-Debridement Measurements/Treatment WC - Nurse 2 - General Ulcer CM Notes Start: 09/20/18 08:26 Freq: Status: Active Protocol: Activity Type Activity Date Activity User E-Sign Co-Sign Detail Recorded Client Recorded Date Recorded By Document 09/20/18 08:34 MW [id number] 09/20/18 08:38 MW Document 09/27/18 08:45 MW [id number] 09/27/18 08:45 MW 09/20/18 09/27/18 08:34 08:45 Wound Center Nurse 2 #1 right hip -Time 08:35 08:45 -Correct Patient Yes Yes -Correct Side, Site, Position Yes Yes -Correct Procedure Yes Yes -Procedure Performed Yes Yes -Type of Procedure Debridement Debridement -Clinical Debridement Subcutaneous Subcutaneous -Post Debridement Size (cm) - Length 3.0 2.6 -Post Debridement Size (cm) - Width 3.0 2.6 -Post Debridement Size (cm) - Depth 0.3 0.2 -Total Square Cm 9.00 6.76 -Wound/Ulcer Outcome Not Healed Not Healed -Ulcer Cleansing Rinsed/ Rinsed/ Irrigated with Irrigated with Saline Saline -Foul Odor after Cleansing No No -Bioengineered Tissue No No -Bleeding Controlled with Pressure Pressure -Offloading No No -Treatment Response Procedure Procedure Tolerated Well Tolerated Well Pain Scale: 0-10 Numeric Is Patient Pain Free? 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 Chronic open surgical wound from right hip replacement Plan: Wash the area with Dial soap. Apply Promogran to the wound bed. Cover with Adaptic and gauze and tape. Follow-up in 2 week.
--- NOTE | 2018-09-27 09:11 | PN.PCM_ITS ---
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 History of Wound: 62-year-old white female that had a right hip replacement done in June 07. Fell up to a flap nonhealing surgical wound. Patient scab then opened and now has a large open surgical wound with fat exposed since May. She has been doing wet-to-dry dressing since then documentation to follow from the surgery center. Since patient has been doing a wet-to-dry since May we have applied for an epi-fix to the wound base to help fill-in depth Progress of Wound: The wound is smaller from last week depth is better. Denied on epi fix we will try to apply for puraply or Apligraf. Patient doing well did grew some bacteria regular staph in the wound patient finished her antibiotics for this. No redness cellulitis or infection noted wound base very clean . Patient will follow-up in 2 weeks no sign of infection patient feels good - Physical Exam Vital Signs Temp Pulse Resp BP 98 F 79 18 140/95 H 09/27/18 08:23 09/27/18 08:23 09/27/18 08:23 09/27/18 08:23 General: Oriented x3, Cooperative, Well developed HEENT: Atraumatic, PERRLA Oral: Moist Mucosa Neck: Supple, No JVD Lungs: Clear to auscultation, Normal air movement Cardiovascular: Regular rate, Regular Rhythm Abdomen: Bowel Sounds Present, Soft, Non Tender, No Hepato-splenomegaly Extremities: No clubbing, No edema Skin: Ulcer/ Wound - Right hip surgical wound dehisced Wound Measurements and Assessment WC - Nurse 1 - General Ulcer Measurement Start: 09/20/18 08:26 Freq: Status: Active Protocol: Activity Type Activity Date Activity User E-Sign Co-Sign Detail Recorded Client Recorded Date Recorded By Document 09/27/18 08:23 RB [id number] 09/27/18 08:25 RB 09/27/18 08:23 Wound Center Nurse 1 [Ulcer Assessment] #1 right hip -Combined with other wound No -Current Size (cm) - Length 2.2 -Current Size (cm) - Width 2.5 -Current Size (cm) - Depth 0.1 -Total Square Cm 5.50 -Epithelialization Small 1-33% -Tunneling No -Undermining/Tunneling No -Circular Undermining No -Exudate Amt Small -Exudate Type Serosanguineous -Wound Margin Distinct, Outline Attached -Granulation Amt Large (67-100%) -Granulation Quality [place] -Slough/Fibrin Yes -Necrosis Amt Small (1-33%) -Necrotic Tissue Type Adherent Slough -Structure Exposed N/A -Texture (Zoila-wound Skin Appearance) Assessed -Moisture (Zoila-wound Skin Appearance Assessed ) -Color (Zoila-wound Skin Appearance) Assessed -Temperature (Zoila-wound Skin No Abnormality Appearance) (Pt Warm) -Tenderness on Palpation (Zoila-wound No Skin Appearance) -Ulcer Cleansing Rinsed/ Irrigated with Saline -Foul Odor after Cleansing No -Anesthetic Used 4% Lidocaine Solution WC - Nurse 2 - General Ulcer CM Notes Start: 09/20/18 08:26 Freq: Status: Active Protocol: Activity Type Activity Date Activity User E-Sign Co-Sign Detail Recorded Client Recorded Date Recorded By Document 09/27/18 08:45 MW [id number] 09/27/18 08:45 MW 09/27/18 08:45 Wound Center Nurse 2 [Procedure/Treatment] -Time 08:45 -Correct Patient Yes -Correct Side, Site, Position Yes -Correct Procedure Yes -Procedure Performed Yes -Type of Procedure Debridement -Clinical Debridement Subcutaneous -Post Debridement Size (cm) - Length 2.6 -Post Debridement Size (cm) - Width 2.6 -Post Debridement Size (cm) - Depth 0.2 -Total Square Cm 6.76 -Wound/Ulcer Outcome Not Healed -Ulcer Cleansing Rinsed/ Irrigated with Saline -Foul Odor after Cleansing No -Bioengineered Tissue No -Bleeding Controlled with Pressure -Offloading No -Treatment Response Procedure Tolerated Well [See Physician Procedure note for Specifics] Pain Scale: 0-10 Numeric [Pain] -Is Patient Pain Free? Yes Musculoskeletal: No Tenderness to Palpation of Joints or Extremities Lymphatic: No Cervical, Supraclavicular, or Inguinal Adenopathy Neurological: Cranial nerves II-XII grossly intact, Neuro grossly intact Psych/Mental Status: Normal Affect, Appropriate Debridement Note Post-Debridement Measurements/Treatment WC - Nurse 2 - General Ulcer CM Notes Start: 09/20/18 08:26 Freq: Status: Active Protocol: Activity Type Activity Date Activity User E-Sign Co-Sign Detail Recorded Client Recorded Date Recorded By Document 09/20/18 08:34 MW [id number] 09/20/18 08:38 MW Document 09/27/18 08:45 MW [id number] 09/27/18 08:45 MW 09/20/18 09/27/18 08:34 08:45 Wound Center Nurse 2 #1 right hip -Time 08:35 08:45 -Correct Patient Yes Yes -Correct Side, Site, Position Yes Yes -Correct Procedure Yes Yes -Procedure Performed Yes Yes -Type of Procedure Debridement Debridement -Clinical Debridement Subcutaneous Subcutaneous -Post Debridement Size (cm) - Length 3.0 2.6 -Post Debridement Size (cm) - Width 3.0 2.6 -Post Debridement Size (cm) - Depth 0.3 0.2 -Total Square Cm 9.00 6.76 -Wound/Ulcer Outcome Not Healed Not Healed -Ulcer Cleansing Rinsed/ Rinsed/ Irrigated with Irrigated with Saline Saline -Foul Odor after Cleansing No No -Bioengineered Tissue No No -Bleeding Controlled with Pressure Pressure -Offloading No No -Treatment Response Procedure Procedure Tolerated Well Tolerated Well Pain Scale: 0-10 Numeric Is Patient Pain Free? 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 Chronic open surgical wound from right hip replacement Plan: Wash the area with Dial soap. Apply Promogran to the wound bed. Cover with Adaptic and gauze and tape. Follow-up in 2 week.
[2018-10-11 08:19] VITALS: BP 150/80; PULSE 73; RESP 18; TEMP 37.3; BMI 22.8
--- NOTE | 2018-10-11 09:59 | PCM.WC.PN ---
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 History of Wound: 62-year-old white female that had a right hip replacement done in June 07. Fell up to a flap nonhealing surgical wound. Patient scab then opened and now has a large open surgical wound with fat exposed since May. She has been doing wet-to-dry dressing since then documentation to follow from the surgery center. Since patient has been doing a wet-to-dry since May we have applied for an epi-fix to the wound base to help fill-in depth Progress of Wound: The wound is very superficial probably will be healed in 1 more week. eusebio. Denied on epi fix we will try to apply for puraply or Apligraf. Patient doing well did grew some bacteria regular staph in the wound patient finished her antibiotics for this. No redness cellulitis or infection noted wound base very clean . Patient will follow-up in 1 weeks no sign of infection patient feels good - Physical Exam Vital Signs Temp Pulse Resp BP 99.1 F 73 18 150/80 H 10/11/18 08:19 10/11/18 08:19 10/11/18 08:19 10/11/18 08:19 General: Oriented x3, Cooperative, Well developed HEENT: Atraumatic, PERRLA Oral: Moist Mucosa Neck: Supple, No JVD Lungs: Clear to auscultation, Normal air movement Cardiovascular: Regular rate, Regular Rhythm Abdomen: Bowel Sounds Present, Soft, Non Tender, No Hepato-splenomegaly Extremities: No clubbing, No edema Wound Measurements and Assessment WC - Nurse 1 - General Ulcer Measurement Start: 09/20/18 08:26 Freq: Status: Active Protocol: Activity Type Activity Date Activity User E-Sign Co-Sign Detail Recorded Client Recorded Date Recorded By Document 10/11/18 08:19 AN [id number] 10/11/18 08:29 AN 10/11/18 08:19 Wound Center Nurse 1 [Ulcer Assessment] #1 right hip -Current Size (cm) - Length 0.3 -Current Size (cm) - Width 0.4 -Current Size (cm) - Depth 0.1 -Total Square Cm 0.12 -Photo Taken No -Classification - Thickness Full Thickness without Exposed Support Structure -Exudate Amt Small -Exudate Type Serosanguineous -Wound Margin Flat & Intact -Granulation Amt Large (67-100%) -Granulation Quality Red -Slough/Fibrin Yes -Necrosis Amt Large (67-100%) -Necrotic Tissue Type Eschar -Structure Exposed None/Limited to Skin Breakdown -Texture (Zoila-wound Skin Appearance) Assessed, Scarring -Moisture (Zoila-wound Skin Appearance Assessed ) -Color (Zoila-wound Skin Appearance) Assessed, Erythema -Temperature (Zoila-wound Skin No Abnormality Appearance) (Pt Warm) -Tenderness on Palpation (Zoila-wound No Skin Appearance) -Ulcer Cleansing Rinsed/ Irrigated with Saline -Foul Odor after Cleansing No -Anesthetic Used 5% Lidocaine Gel WC - Nurse 2 - General Ulcer CM Notes Start: 09/20/18 08:26 Freq: Status: Active Protocol: Activity Type Activity Date Activity User E-Sign Co-Sign Detail Recorded Client Recorded Date Recorded By Document 10/11/18 08:50 MW [id number] 10/11/18 08:52 MW 10/11/18 08:50 Wound Center Nurse 2 [Procedure/Treatment] -Time 08:51 -Correct Patient Yes -Correct Side, Site, Position Yes -Correct Procedure Yes -Procedure Performed Yes -Type of Procedure Debridement -Clinical Debridement Subcutaneous -Post Debridement Size (cm) - Length 0.5 -Post Debridement Size (cm) - Width 0.2 -Post Debridement Size (cm) - Depth 0.1 -Total Square Cm 0.10 -Wound/Ulcer Outcome Not Healed -Ulcer Cleansing Rinsed/ Irrigated with Saline -Foul Odor after Cleansing No -Bioengineered Tissue No -Bleeding Controlled with Pressure -Offloading No -Treatment Response Procedure Tolerated Well [See Physician Procedure note for Specifics] Pain Scale: 0-10 Numeric [Pain] -Is Patient Pain Free? Yes Musculoskeletal: No Tenderness to Palpation of Joints or Extremities Lymphatic: No Cervical, Supraclavicular, or Inguinal Adenopathy Neurological: Cranial nerves II-XII grossly intact, Neuro grossly intact Psych/Mental Status: Normal Affect, Appropriate, Alert and oriented to time, place, person, mood and affect Debridement Note Post-Debridement Measurements/Treatment WC - Nurse 2 - General Ulcer CM Notes Start: 09/20/18 08:26 Freq: Status: Active Protocol: Activity Type Activity Date Activity User E-Sign Co-Sign Detail Recorded Client Recorded Date Recorded By Document 09/20/18 08:34 MW [id number] 09/20/18 08:38 MW Document 09/27/18 08:45 MW [id number] 09/27/18 08:45 MW Document 10/11/18 08:50 MW [id number] 10/11/18 08:52 MW 09/20/18 09/27/18 10/11/18 08:34 08:45 08:50 Wound Center Nurse 2 #1 right hip -Time 08:35 08:45 08:51 -Correct Patient Yes Yes Yes -Correct Side, Site, Position Yes Yes Yes -Correct Procedure Yes Yes Yes -Procedure Performed Yes Yes Yes -Type of Procedure Debridement Debridement Debridement -Clinical Debridement Subcutaneous Subcutaneous Subcutaneous -Post Debridement Size (cm) - Length 3.0 2.6 0.5 -Post Debridement Size (cm) - Width 3.0 2.6 0.2 -Post Debridement Size (cm) - Depth 0.3 0.2 0.1 -Total Square Cm 9.00 6.76 0.10 -Wound/Ulcer Outcome Not Healed Not Healed Not Healed -Ulcer Cleansing Rinsed/ Rinsed/ Rinsed/ Irrigated with Irrigated with Irrigated with Saline Saline Saline -Foul Odor after Cleansing No No No -Bioengineered Tissue No No No -Bleeding Controlled with Pressure Pressure Pressure -Offloading No No No -Treatment Response Procedure Procedure Procedure Tolerated Well Tolerated Well Tolerated Well Pain Scale: 0-10 Numeric Is Patient Pain Free? Yes Yes Yes Wound debrided: Right anterior hip area dehisced surgical wound Type of Debridement: Excisional debridement Anesthesia Used: 5% Lidocaine Gel Depth: Down to and including healthy tissue, in the subcutaneous layer Instrument Used: 5mm curette Tissue Removed: Devitalized tissue Assessment/Plan Active Problems (Last Updated 07/08/18 @ 14:12 by Rachel Herrera) Open wound of lower extremity (Chronic) Non-healing surgical wound (Chronic) 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 Chronic open surgical wound from right hip replacement Plan: Wash the area with Dial soap. Apply Promogran to the wound bed. Cover with Adaptic and gauze and tape. Follow-up in 1 week.
== END 2018-10-13 23:59 ==
LOC: WC 08:00
PROVIDERS: Family Provider Family Medicine; PCP Family Medicine; Visit Provider Nurse Practitioner
DX: T81.31XA Disruption of external operation (surgical) wound, not elsewhere classified, initial encounter (principal); Y83.8 Other surgical procedures as the cause of abnormal reaction of the patient, or of later complication, without mention of misadventure at the time of the procedure; Z96.641 Presence of right artificial hip joint
CPT/HCPCS: 11042

== ENCOUNTER 2018-10-18 08:04 | Outpatient (RCR) | payer OTHER, SELFPAY ==
[2018-10-14 00:56] VITALS: BP 150/80; PULSE 73; RESP 18; TEMP 37.3
[2018-10-18 08:17] VITALS: BP 146/7; PULSE 71; RESP 18; TEMP 37.2; BMI 22.8
--- NOTE | 2018-10-18 08:35 | PN.PCM_ITS ---
(1) Essential (primary) hypertension Status: Chronic Current Visit: No Code(s): I10 - Essential (primary) hypertension (2) Non-healing surgical wound Status: Chronic Current Visit: Yes Code(s): T81.89XA - Other complications of procedures, not elsewhere classified, initial encounter (3) Non-pressure ulcer of right lower extremity with fat layer exposed Status: Chronic Current Visit: Yes Code(s): L97.912 - Non-pressure chronic ulcer of unspecified part of right lower leg with fat layer exposed Type of Wound Date of Service: 10/18/18 Chief Complaint: Follow-up on right surgical open wound. History of Wound: 62-year-old white female that had a right hip replacement done in June 07. Fell up to a flap nonhealing surgical wound. Patient scab then opened and now has a large open surgical wound with fat exposed since May. She has been doing wet-to-dry dressing since then documentation to follow from the surgery center. Since patient has been doing a wet-to-dry since May we have applied for an epi-fix to the wound base to help fill-in depth Progress of Wound: The right hip surgical dehisced wound is healed. Patient will be discharged from the wound center - Physical Exam Vital Signs Temp Pulse Resp BP 99 F 71 18 146/7 H 10/18/18 08:17 10/18/18 08:17 10/18/18 08:17 10/18/18 08:17 General: Oriented x3, Cooperative, Well developed HEENT: Atraumatic, PERRLA Oral: Moist Mucosa Neck: Supple, No JVD Lungs: Clear to auscultation, Normal air movement Cardiovascular: Regular rate, Regular Rhythm Abdomen: Bowel Sounds Present, Soft, Non Tender, No Hepato-splenomegaly Extremities: No clubbing, No edema Skin: Ulcer/ Wound - Right hip wound Wound Measurements and Assessment WC - Nurse 1 - General Ulcer Measurement Start: 10/18/18 08:16 Freq: Status: Active Protocol: Activity Type Activity Date Activity User E-Sign Co-Sign Detail Recorded Client Recorded Date Recorded By Document 10/18/18 08:17 RB [id number] 10/18/18 08:19 RB 10/18/18 08:17 Wound Center Nurse 1 [Ulcer Assessment] #1 right hip -Current Size (cm) - Length 0.1 -Current Size (cm) - Width 0.1 -Current Size (cm) - Depth 0.1 -Total Square Cm 0.01 -Tunneling No -Undermining/Tunneling No -Circular Undermining No -Exudate Amt Small -Exudate Type Serosanguineous -Wound Margin Distinct, Outline Attached -Granulation Amt Large (67-100%) -Granulation Quality [place] -Slough/Fibrin Yes -Necrosis Amt Medium (34-66%) -Necrotic Tissue Type Adherent Slough -Structure Exposed N/A -Texture (Zoila-wound Skin Appearance) Assessed -Moisture (Zoila-wound Skin Appearance Assessed,Dry/ ) Scaly -Color (Zoila-wound Skin Appearance) Assessed -Temperature (Zoila-wound Skin No Abnormality Appearance) (Pt Warm) -Tenderness on Palpation (Zoila-wound No Skin Appearance) -Ulcer Cleansing Wound Cleanser -Foul Odor after Cleansing No -Anesthetic Used 5% Lidocaine Gel WC - Nurse 2 - General Ulcer CM Notes Start: 10/18/18 08:16 Freq: Status: Active Protocol: Activity Type Activity Date Activity User E-Sign Co-Sign Detail Recorded Client Recorded Date Recorded By Document 10/18/18 08:30 MW [id number] 10/18/18 08:31 MW 10/18/18 08:30 Wound Center Nurse 2 [Procedure/Treatment] -Time 08:31 -Correct Patient Yes -Correct Side, Site, Position Yes -Correct Procedure Yes -Procedure Performed No -Post Debridement Size (cm) - Length 0 -Post Debridement Size (cm) - Width 0 -Post Debridement Size (cm) - Depth 0 -Total Square Cm 0 -Wound/Ulcer Outcome Healed- Epithelialized [See Physician Procedure note for Specifics] Pain Scale: 0-10 Numeric [Pain] -Is Patient Pain Free? Yes Musculoskeletal: No Tenderness to Palpation of Joints or Extremities Lymphatic: No Cervical, Supraclavicular, or Inguinal Adenopathy Neurological: Cranial nerves II-XII grossly intact, Neuro grossly intact Psych/Mental Status: Normal Affect, Appropriate Debridement Note Post-Debridement Measurements/Treatment WC - Nurse 2 - General Ulcer CM Notes Start: 10/18/18 08:16 Freq: Status: Active Protocol: Activity Type Activity Date Activity User E-Sign Co-Sign Detail Recorded Client Recorded Date Recorded By Document 10/18/18 08:30 MW [id number] 10/18/18 08:31 MW 10/18/18 08:30 Wound Center Nurse 2 #1 right hip -Time 08:31 -Correct Patient Yes -Correct Side, Site, Position Yes -Correct Procedure Yes -Procedure Performed No -Post Debridement Size (cm) - Length 0 -Post Debridement Size (cm) - Width 0 -Post Debridement Size (cm) - Depth 0 -Total Square Cm 0 -Wound/Ulcer Outcome Healed- Epithelialized Pain Scale: 0-10 Numeric Is Patient Pain Free? Yes Wound debrided: Right hip Type of Debridement: Selective debridement Anesthesia Used: 5% Lidocaine Gel Depth: Down to and including healthy tissue Percentage of wound debrided: 100 Instrument Used: 7mm curette Tissue Removed: Devitalized tissue Severity: Limited To Skin Breakdown Amount of bleeding with debridement: None Patient tolerated procedure well Assessment/Plan Active Problems (Last Updated 07/08/18 @ 14:12 by Rachel Herrera) Non-healing surgical wound (Chronic) Non-pressure ulcer of right lower extremity with fat layer exposed (Chronic) Assessment: Nonhealing surgical wound right upper thigh resolved. Chronic open surgical wound from right hip replacement resolved Plan: Discharge from the wound center follow-up as needed
== END 2018-11-13 23:59 ==
LOC: WC 08:04
PROVIDERS: Family Provider Family Medicine; PCP Family Medicine; Visit Provider Nurse Practitioner
DX: Z09 Encounter for follow-up examination after completed treatment for conditions other than malignant neoplasm (principal); I10 Essential (primary) hypertension
CPT/HCPCS: 99213; G0463

== ENCOUNTER 2021-04-25 09:14 | Outpatient (CLI) | payer MEDICARE, SELFPAY ==
--- NOTE | 2021-04-25 09:44 | EKG12_ITS ---
Test Reason : PREOP Blood Pressure : / mmHG Vent. Rate : 065 BPM Atrial Rate : 065 BPM P-R Int : 156 ms QRS Dur : 078 ms QT Int : 390 ms P-R-T Axes : 031 019 036 degrees QTc Int : 405 ms Normal sinus rhythm Normal ECG Confirmed by CHANTELL COBIAN, TAVARES ([id number]), food editor KYLIE VEGA ([id number]) on 04/26/2021 1:42:55 PM Referred By: Bladimir Connolly Confirmed By:TAVARES ABDUL MD
[2021-04-25 10:38] LABS: Hematocrit 36.9 % (37-47); Hemoglobin 11.9 g/dL (12.0-15.0); Mean Corp Hgb Conc 32.2 g/dL (32-36); Mean Corpuscular Hgb 29.7 pg (27.0-32.0); Mean Platelet Vol. 10.5 fl (6.2-12.0); Platelet Count 356 K/mm3 (150-450); RBC Distribution Width CV 14.5 % (11.6-14.6); RBC Distribution Width SD 48.9 fl (35.1-43.9); Red Blood Count 4.01 M/mm3 (4.2-5.4); White Blood Count 7.3 K/mm3 (4.4-11.0)
[2021-04-25 11:22] LABS: Albumin, Serum 4.1 g/dL (3.2-5.0)
== END 2021-04-25 23:59 | disposition short-term general hospital (02) ==
PROVIDERS: PCP Family Medicine; Referring Provider Physician Assistant Surgical; Visit Provider Physician Assistant Surgical
DX: Z01.810 Encounter for preprocedural cardiovascular examination (principal); Z01.818 Encounter for other preprocedural examination
CPT/HCPCS: 36415; 82040; 85027; 93005

== ENCOUNTER → 2024-11-19 | Outpatient (CLI) | payer MEDICARE, SELFPAY ==
--- NOTE | 2024-11-19 14:52 | NEURO ---
NCS and/or EMG Patient Report Ordering Doctor: Angel Estrella DATE OF SERVICE: 11/19/24 Rosa presents with complaints of intermittent numbness in the right hand. Electrodiagnostic findings: Right median motor nerve demonstrates borderline prolonged distal latency with normal amplitude and reduced conduction velocity. Prolonged right median sensory latency at the wrist. Right ulnar motor response is within normal limits. Normal right median and right ulnar F?wave. Normal right ulnar and radial sensory responses. Needle EMG testing was performed in the right upper limb. All muscles tested showed no evidence of denervation with normal motor unit action potentials. Electrodiagnostic impression: This is an abnormal study in the right upper limb. 1. Electrodiagnostic findings suggestive of right-sided median mononeuropathy. This consistent with a mild right carpal tunnel syndrome Multi Select Codes Neurology Neurology Interp Codes: 81519-01 Musc test done w/n test comp (interp) and 59660-17 Nrv cndj tst 5-6 studies (interp)
--- NOTE | 2024-11-19 14:52 | NEURO ---
NCS and/or EMG Patient Report Ordering Doctor: Angel Esterlla DATE OF SERVICE: 11/19/24 Rosa presents with complaints of intermittent numbness in the right hand. Electrodiagnostic findings: Right median motor nerve demonstrates borderline prolonged distal latency with normal amplitude and reduced conduction velocity. Prolonged right median sensory latency at the wrist. Right ulnar motor response is within normal limits. Normal right median and right ulnar F?wave. Normal right ulnar and radial sensory responses. Needle EMG testing was performed in the right upper limb. All muscles tested showed no evidence of denervation with normal motor unit action potentials. Electrodiagnostic impression: This is an abnormal study in the right upper limb. 1. Electrodiagnostic findings suggestive of right-sided median mononeuropathy. This consistent with a mild right carpal tunnel syndrome Multi Select Codes Neurology Neurology Interp Codes: 20420-87 Musc test done w/n test comp (interp) and 48026-78 Nrv cndj tst 5-6 studies (interp)
== END | disposition home or self-care (01) ==
LOC: PSN 13:41
PROVIDERS: PCP Family Medicine; Referring Provider Specialist; Visit Provider Specialist
DX: G56.01 Carpal tunnel syndrome, right upper limb (principal)
CPT/HCPCS: 95886; 95909